=== PATIENT | male | born 1985 | race Caucasian/White ===

== ENCOUNTER 2022-12-07 10:09 | Emergency (ER) | payer OTHER, SELFPAY ==
[2022-12-07 10:12] VITALS: BP 141/96; BP 160/92; PULSE 74; PULSE 99; RESP 18; TEMP 36.8; O2SAT 95; BMI 29.9
--- NOTE | 2022-12-07 11:07 | ECG_ITS ---
Test Reason : MED RXN Blood Pressure : / mmHG Vent. Rate : 099 BPM Atrial Rate : 099 BPM P-R Int : 134 ms QRS Dur : 088 ms QT Int : 338 ms P-R-T Axes : 033 041 065 degrees QTc Int : 433 ms Normal sinus rhythm Normal ECG No previous ECGs available Referred By: Renu Vera Electronically Signed By:SHRUTHI GREEN
[2022-12-07 11:30] VITALS: BP 146/96; PULSE 100
[2022-12-07 11:31] VITALS: BP 136/97; BP 142/100; PULSE 111; PULSE 116
--- NOTE | 2022-12-07 11:47 | ED_ITS ---
HPI - General Adult General Chief complaint: General Medical Stated complaint: med error/neurontin? Time Seen by Provider: 12/07/22 10:59 Source: patient Mode of arrival: ambulatory History of Present Illness HPI narrative: 36-year-old male with past medical history of adjustment disorder, anxiety, obesity, compulsive disorder, intellectual disability, presenting to the ED from correction with correction staff s/p receiving 900 mg of Gabapentin accidentally at 08:30AM which is not patient's medication. Patient is not currently on Gabapentin. jail staff deny any symptoms at present. Patient denies lethargy, nausea, vomiting, abdominal pain, CP/SOB. Onset (ago): hour(s) Related Data Home Medications Medication Instructions Recorded Confirmed clonidine HCl 0.1 mg tablet 0.1 mg PO BID 11/27/20 09/15/22 lorazepam 2 mg tablet (Ativan) 2 mg PO BEDTIME 11/27/20 09/15/22 risperidone 1 mg tablet 1 mg PO BID 11/27/20 09/15/22 Previous Rx's Medication Instructions Recorded guaifenesin 100 mg/5 mL oral 200 mg (10 mL) PO Q4H PRN cough 10/13/21 liquid (Siltussin SA) #473 mL cholecalciferol (vitamin D3) 25 25 mcg PO QAM #90 caps 05/01/22 mcg (1,000 unit) capsule (Vitamin D3) acetaminophen 325 mg capsule 650 mg PO Q4-6H PRN fever or pain 06/09/22 #30 caps Allergies Allergy/AdvReac Type Severity Reaction Status Date / Time No Known Allergies Allergy Verified 09/15/22 10:02 Review of Systems Review of Systems: Constitutional: No Fever, No Chills ENT/Mouth: No Ear Pain, No Nasal Congestion, No sore throat, No Rhinorrhea, No Swallowing Difficulty Cardiovascular: No Chest Pain, No SOB Respiratory: No Cough, No Sputum, No Wheezing Gastrointestinal: No Nausea, No Vomiting, No Diarrhea, No Constipation, No Abdominal pain Genitourinary: No Dysuria, No Hematuria, No Flank Pain Musculoskeletal: No joint pain, No Myalgias, No Joint Swelling Skin: No Skin Lesions, No rash Neuro: No Weakness, No Numbness Yes all other systems are reviewed and are negative Constitutional: Constitutional: Reports as per [facility] Past Medical History Attestation statement: The following information was validated with the patient. Medical History Adjustment disorder with disturbance of conduct Anxiety Mental and behavioral problem Obesity (BMI 30-39.9) Obsessive compulsive disorder Vitamin D deficiency Surgical History No pertinent past surgical history Family History Family History Father No problems noted. Mother No problems noted. Social History Social History Housing: House Alcohol intake: never Patient Tobacco Use Status: Never used Tobacco e-Cigarette/Vaping Use: Never Used service: No Current occupational status: disabled Cognitive needs: No Hearing needs: No Vision needs: No Physical Exam ED Vital Signs: Vital Signs - 24 hr 12/07/22 10:12 12/07/22 11:30 12/07/22 11:31 Temperature 98.3 F Pulse Rate 99 100 111 H Respiratory Rate 18 Blood Pressure 141/96 H 146/96 H 136/97 H Pulse Oximetry 95 Oxygen Delivery Method Room Air 12/07/22 11:31 12/07/22 14:13 Temperature Pulse Rate 116 H 108 H Respiratory Rate 16 Blood Pressure 142/100 H 116/76 Pulse Oximetry 94 Oxygen Delivery Method Room Air BMI result Body Mass Index 29.9 Const General: cooperative, healthy appearing, no acute distress, alert, awake and Physically active; No lethargic Orientation/consciousness: No lethargic Limitations: no limitations HENAL Head: Yes normal to inspection and Yes atraumatic Ears: hearing grossly normal bilaterally General nose exam: Normal external nose present Face and sinus: Yes normal facial exam Eyes General: appearance normal, both eyes and all related structures EOM: EOMs intact bilaterally Neck Neck: Yes normal visual inspection and Yes no meningeal signs Resp Effort & Inspection: normal respiratory effort and no respiratory distress Auscultation: clear to auscultation bilaterally, no rhonchi and no wheezes Cardio Rate: regular rate Heart sounds: S1 normal heart sound present and S2 normal heart sound present GI Inspection: Yes normal to inspection Palpation (GI): Soft to palpation, nontender, no guarding and not rigid Skin Rashes: no rashes Wounds: no wounds Neuro General: tone normal and no meningeal signs Gait exam (Neuro): Normal gait present Extrem General: Yes normal to inspection Course Course Course Narrative: -1330--patient remains awake and alert. -1420--patient has been observed and re-evaluated in the emergency department for any signs of hypotension and increased lethargy for 6hrs post ingestion of Gabapentin. Patient has remained awake and alert, denies symptoms at present. Discussed worrisome signs and symptoms and strict return precautions with correction staff, patient is safe for discharge at this time Medical Decision Making Medical Decision Making MDM Narrative: 36-year-old male with past medical history of adjustment disorder, anxiety, obesity, compulsive disorder, intellectual disability, presenting to the ED from correction with correction staff s/p receiving 900 mg of Gabapentin accidentally at 08:30AM which is not patient's medication. On exam vital signs stable, NAD, nontoxic appearing, asymptomatic, no evidence of lethargy. Case discussed with Dr. Chowdhury, will observe and re-evaluate patient for 6 hours post ingestion for any signs of lethargy/hypotension. Plan: EKG, orthostatics, observe and reassess Please refer to course for remaining clinical decision making, interpretation of labs/imaging results, and discussions with consultants and/or family members. Differential Diagnosis Differential Diagnoses: The differential diagnosis associated with the presentation includes as above Admission/Observation Consideration of admission/observation: Escalation of care including admission/observation considered Lab Data [facility] Lab Attestation statement: I reviewed the patient's lab results. Independent Interpretation I performed an independent interpretation of an: EKG Interpretation: My interpretation EKG is normal sinus rhythm at a rate of 99. MO interval 134. QTC 433. No STEMI Independent Historian Clinical information obtained from an independent historian. History obtained from or confirmed by: Other (jail staff) Discharge Plan Discharge Clinical Impression: Medication adverse effect Patient Disposition: Home, Self-Care Instructions: Adult Overdose (ED) Additional Instructions: Please avoid any additional sedative medications for the rest of the day/night. Patient has been observed for 6 hours after ingesting incorrect medication without any adverse reactions If patient becomes increasingly lethargic/tired, is not easily arousable, has nausea/vomiting, or lightheadedness/dizziness return to the ED immediately Prescriptions: No Action guaifenesin [Siltussin SA] 100 mg/5 mL liquid 200 mg PO Q4H PRN (Reason: cough) Qty: 473 0RF cholecalciferol (vitamin D3) [Vitamin D3] 25 mcg (1,000 unit) capsule 25 mcg PO QAM Qty: 90 3RF acetaminophen 325 mg capsule 650 mg PO Q4-6H PRN (Reason: fever or pain) Qty: 30 5RF Rx Instructions: prn headache,pain or fever > 100 clonidine HCl 0.1 mg tablet 0.1 mg PO BID lorazepam [Ativan] 2 mg tablet 2 mg PO BEDTIME risperidone 1 mg tablet 1 mg PO BID Referrals: Physician,Unknown J [Primary Care Provider] - 5 days Interventions: ED Discharge Assessment Last Done: 12/07/22 14:43 Discharge Date/Time: 12/07/22 14:44
[2022-12-07 14:13] VITALS: BP 116/76; PULSE 108; RESP 16; O2SAT 94
--- NOTE | 2022-12-07 14:14 | PC.NURSE ---
No changes, pt at baseline mentation. Pt denies pain or any complaints. Plan for discharge
== END 2022-12-07 14:44 | disposition home or self-care (01) ==
PROVIDERS: Emergency Provider Emergency Medicine
DX: I95.9 Hypotension, unspecified (principal); R53.1 Weakness; T42.6X5A Adverse effect of other antiepileptic and sedative-hypnotic drugs, initial encounter; Y92.9 Unspecified place or not applicable; Z79.899 Other long term (current) drug therapy
CPT/HCPCS: 93005; 99283; 99284

== ENCOUNTER → 2024-07-26 13:53 | Outpatient (BNVA) | payer OTHER, SELFPAY | PROVIDERS: PCP Internal Medicine ==